=== PATIENT | male | born 2000 | race Caucasian/White ===

== ENCOUNTER 2019-03-17 15:57 | Emergency (ER) | payer OTHER ==
--- NOTE | 2019-03-17 16:04 | UC ---
Laceration HPI - HPI Summary HPI Summary: 18 yo male presents with laceration to left forearm. He tells me that just [employer] he tripped and fell, when he tried to catch himself his arm ran along the wall and a nail that was sticking out lacerated his left forearm. He bandaged the area and came to . He states he had a laceration on his right arm about a month ago and received stitches then and his tetanus is up to date. He is left handed. - History Of Current Complaint Stated Complaint: LACERATION ON LEFT ARM Time Seen by Provider: 03/17/19 16:04 Hx Obtained From: Patient Laceration Location: Arm - Allergies/Home Medications Allergies/Adverse Reactions: Allergies Allergy/AdvReac Type Severity Reaction Status Date / Time enviromental Allergy Unknown Uncoded 03/17/19 16:20 Reaction Details Home Medications: Home Medications Sertraline* [Zoloft*] 40 mg PO BEDTIME 03/17/19 [History Confirmed 03/17/19] PMH/Surg Hx/FS Hx/Imm Hx Psychological History: Anxiety - Surgical History Surgical History: None - Family History Known Family History: Positive: None - Social History Occupation: Student Lives: With Family Alcohol Use: None Substance Use Type: None Smoking Status (MU): Never Smoked Tobacco Review of Systems All Other Systems Reviewed And Are Negative: Yes Constitutional: Positive: Negative Skin: Positive: Other - Laceration Respiratory: Positive: Negative Cardiovascular: Positive: Negative Musculoskeletal: Positive: Negative Neurological: Positive: Negative Psychological: Positive: Negative Physical Exam - Summary Physical Exam Summary: GENERAL: NAD. WDWN. No pain distress. SKIN: LEFT FOREARM: 16.0cm linear laceration partial thickness from the proximal radial forearm to the lower 2/3 ulnar aspect of forearm (diagonal lac) . Dried blood. Clean wound. Numerous scars and healed horizontal lacerations on b/l forearms. CHEST: No accessory muscle use. Breathing comfortably and in no distress. CV: Pulses intact. Cap refill <2seconds NEURO: Alert. PSYCH: Age appropriate behavior. Triage Information Reviewed: Yes Vital Signs: Vital Signs: Temp Pulse Resp BP Pulse Ox 98.8 F 104 16 115/68 97 03/17/19 16:16 03/17/19 16:16 03/17/19 16:16 03/17/19 16:16 03/17/19 16:16 Vital Signs Reviewed: Yes Laceration Repair - Laceration Repair 1 Description: Linear Laceration Size After Repair: Length (cm) - 16.0 Modified For Repair: No Anesthesia Used: 1.0% Lido Irrigation With Pressure Irrigation Device: Yes Closure Material: Sutures - #13 Closure Method: Single Layer Suture Of: Skin Suture Type: Prolene - 5-0 Laceration Course/Dx - Course/Dx Course Of Treatment: Laceration left forearm. He has past scars and healed lacerations on his b/l forearms that appear consistent with self inflicted cutting behavior. When asked, he denies that his left forearm laceration today is self inflicted. He denies this to myself and the nurse. He denies SI/HI or wanting to hurt himself or others. He states that he feels safe at home. 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 The procedure was explained to the pt and all questions were answered. A time out was performed, witnessed, and signed. The area was irrigated with 200mL sterile saline. 4mL of 2% lidocaine without epi was administered and good anesthetization was achieved. In the usual sterile fashion, THIRTEEN 5-0 prolene interrupted sutures were placed to the mid and distal part of the laceration. The proximal part of the laceration was amenable to glue, therefore dermabond was applied and the wound was brought into good approximation. The wound was bandaged with telfa. Pt tolerated procedure well. He agrees to return for suture removal in 7-10 days. - Diagnosis Provider Diagnosis: Laceration of left forearm Discharge - Sign-Out/Discharge Documenting (check all that apply): Patient Departure All imaging exams completed and their final reports reviewed: No Studies - Discharge Plan Condition: Stable Disposition: HOME Patient Education Materials: Care For Your Stitches (ED), Laceration (ED) Referrals: No Primary Care Phys,NOPCP [Primary Care Provider] - Additional Instructions: If you develop a fever, shortness of breath, chest pain, new or worsening symptoms - please call your PCP or go to the ED immediately. 1) Please keep the area bandaged, clean, dry, and intact for the next 24- 48hours and then keep covered daily with a bandaged until sutures are removed. 2) If you develop a fever, colored or thick discharge, increased pain or swelling - please call your PCP or return for a wound check. 3) Please return in 7-10 days to have your THIRTEEN sutures removed. - Billing Disposition and Condition Condition: STABLE Disposition: Home - Attestation Statements Provider Attestation: I was available for consult. This patient was seen by the [facility]. The patient was not presented to, seen by, or examined by me. -[place]ka
[2019-03-17 16:20] VITALS: BP 115/68
[2019-03-17] MEDS ORDERED: Lidocaine 1% MPF* 2 ML VIAL INJ ONE (16:33)
== END 2019-03-17 17:21 | disposition home or self-care (01) ==
LOC: UCCORT 15:57
DX: S51.812A Laceration without foreign body of left forearm, initial encounter (principal); W01.118A Fall on same level from slipping, tripping and stumbling with subsequent striking against other sharp object, initial encounter; Y92.9 Unspecified place or not applicable; F41.9 Anxiety disorder, unspecified
CPT/HCPCS: 12005; 99211; G0463

== ENCOUNTER 2019-03-25 17:40 | Emergency (ER) | payer OTHER ==
[2019-03-25 17:54] VITALS: BP 109/62
--- NOTE | 2019-03-25 18:06 | UC ---
Skin Complaint HPI - HPI Summary HPI Summary: 18-year-old male comes in for suture removal from a left forearm laceration that was repaired on March 17, 2019. Had a 16 cm laceration and received 13 stitches plus skin adhesive. Patient tells me that 5 of the 13 stitches have fallen out. Denies any drainage from the area. No new bleeding. No fevers or chills. - History of Current Complaint Chief Complaint: UCLaceration Time Seen by Provider: 03/25/19 17:54 Stated Complaint: STITCHES REMOVAL - DONE HERE Pain Intensity: 0 - Allergy/Home Medications Allergies/Adverse Reactions: Allergies Allergy/AdvReac Type Severity Reaction Status Date / Time enviromental Allergy Unknown Uncoded 03/25/19 17:54 Reaction Details PMH/Surg Hx/FS Hx/Imm Hx Previously Healthy: Yes - Surgical History Surgical History: None - Family History Known Family History: Positive: None - Social History Alcohol Use: None Substance Use Type: None Substance Use Comment - Amount & Last Used: Shirin Smoking Status (MU): Never Smoked Tobacco Review of Systems All Other Systems Reviewed And Are Negative: Yes Constitutional: Positive: Negative Skin: Positive: Other - SEE HPI Eyes: Positive: Negative ENT: Positive: Negative Respiratory: Positive: Negative Cardiovascular: Positive: Negative Gastrointestinal: Positive: Negative Motor: Positive: Negative Neurovascular: Positive: Negative Musculoskeletal: Positive: Negative Neurological: Positive: Negative Psychological: Positive: Negative Is Patient Immunocompromised?: No Physical Exam Triage Information Reviewed: Yes Appearance: Well-Appearing, No Pain Distress, Well-Nourished Vital Signs: Initial Vital Signs Temp 98 F 03/25/19 17:48 Pulse 87 03/25/19 17:48 Resp 15 03/25/19 17:48 BP 109/62 03/25/19 17:48 Pulse Ox 98 03/25/19 17:48 Vital Signs Reviewed: Yes Eye Exam: Normal Eyes: Positive: Conjunctiva Clear Neck: Positive: Supple Respiratory: Positive: No respiratory distress Musculoskeletal Exam: Normal Musculoskeletal: Positive: Strength Intact, ROM Intact Neurological: Positive: Alert Psychological: Positive: Age Appropriate Behavior Skin: Positive: Other - On the dorsum of the left forearm there is a healing 16 cm laceration. There are 8 remaining sutures. There is minimal erythema at the borders of the laceration and around the bases of the sutures. No drainage no streaking. I removed the remaining 8 sutures. Course/Dx - Diagnoses Provider Diagnosis: Encounter for removal of sutures Discharge - Sign-Out/Discharge Documenting (check all that apply): Patient Departure All imaging exams completed and their final reports reviewed: No Studies - Discharge Plan Condition: Stable Disposition: HOME Patient Education Materials: Stitches Removal (ED) Referrals: [facility] [Outside] Additional Instructions: FOLLOW UP WITH YOUR DOCTOR IF NOT COMPLETELY IMPROVED. GET REEVALUATED SOONER IF WORSE; SIGNS OF INFECTION OR ANY QUESTIONS OR CONCERNS. - Billing Disposition and Condition Condition: STABLE Disposition: Home
== END 2019-03-25 18:10 | disposition home or self-care (01) ==
LOC: UCCORT 17:40
DX: Z48.02 Encounter for removal of sutures (principal)

== ENCOUNTER 2019-04-09 18:23 | Emergency (ER) | payer OTHER ==
[2019-04-09 19:15] VITALS: BP 110/70
[2019-04-09] MEDS ORDERED: Lidocaine 1% MPF ** 5 ML VIAL INJ ONE (19:48)
--- NOTE | 2019-04-09 19:48 | UC ---
Skin Complaint HPI - HPI Summary HPI Summary: Patient is a 18-year-old male here with a left axillary abscess. Patient's had erythema, pain, swelling to his left axilla for the past 2 days. Patient's had no fever, chills. Patient's never had this before. Patient does have a history of IV drug use with last use 2 months ago and has never injected drugs there. Medications reviewed - History of Current Complaint Chief Complaint: UCSkin Time Seen by Provider: 04/09/19 19:42 Stated Complaint: LT ARM SKIN CONCERN Onset/Duration: Gradual Onset Skin Exposure Onset/Duration: Days Ago Pain Intensity: 0 - Allergy/Home Medications Allergies/Adverse Reactions: Allergies Allergy/AdvReac Type Severity Reaction Status Date / Time enviromental Allergy Unknown Uncoded 04/09/19 19:15 Reaction Details Home Medications: Home Medications Citalopram TAB* [Celexa TAB*] 1 tab PO BEDTIME 04/09/19 [History Confirmed 04/09] PMH/Surg Hx/FS Hx/Imm Hx Previously Healthy: Yes - Surgical History Surgical History: None - Family History Known Family History: Positive: None, Non-Contributory - Social History Alcohol Use: Occasionally Substance Use Type: Marijuana Substance Use Comment - Amount & Last Used: occasionally Smoking Status (MU): Heavy Every Day Tobacco Smoker Amount Used/How Often: 1/2ppd Household Exposure Type: Cigarettes Review of Systems All Other Systems Reviewed And Are Negative: Yes Constitutional: Negative: Fever, Chills Skin: Positive: Rash Physical Exam - Summary Physical Exam Summary: Vital Signs Reviewed: Yes A+Ox3, no distress Eyes: Conjunctiva Clear ENT: Hearing grossly normal neck: supple Respiratory: Positive: No respiratory distress, No accessory muscle use Cardiovascular: skin color reflect adequate perfusion Musculoskeletal Exam: BROWNING x 4 without difficulty Neurological: Positive: Alert, ambulatory without difficulty Skin: To send me by 2 cm area of erythema, induration, fluctuance on the left proximal bicep. No surrounding erythema Triage Information Reviewed: Yes Vital Signs: Initial Vital Signs Temp 97.9 F 04/09/19 19:11 Pulse 76 04/09/19 19:11 Resp 16 04/09/19 19:11 BP 110/70 04/09/19 19:11 Pulse Ox 100 04/09/19 19:11 Procedures - Incision and Drainage Left Site: left axilla Anesthesia: Local Instrument(s): Scalpel Packing: Other - patient had his skin cleaned in a sterile fashion. 4 mL of 1% lidocaine was injected into the abscess cavity. A 1cm incision was performed with purulent drainage. Abscess cavity was small so no packing was placed Course/Dx - Course Course Of Treatment: Patient is here with an abscess in the left axilla. The patient has no surrounding cellulitis. Patient had successful incision and drainage of his abscess. - Differential Diagnoses - Skin Complaint Differential Diagnoses: Abscess, Cellulitis, Drug Rash, MRSA, Urticaria - Diagnoses Provider Diagnosis: Abscess of left axilla Discharge - Sign-Out/Discharge Documenting (check all that apply): Patient Departure All imaging exams completed and their final reports reviewed: No Studies - Discharge Plan Condition: Improved Disposition: HOME Patient Education Materials: Abscess (ED) Referrals: Justin Dumont MD [Primary Care Provider] - Additional Instructions: Please change her dressing on your wound at least once a day Please keep your wound clean and dry Please return if you have fever, worsening redness, a large volume of pus draining from your wound - Billing Disposition and Condition Condition: IMPROVED Disposition: Home
== END 2019-04-09 20:15 | disposition home or self-care (01) ==
LOC: UCCORT 18:23
DX: L02.412 Cutaneous abscess of left axilla (principal); F17.210 Nicotine dependence, cigarettes, uncomplicated
CPT/HCPCS: 10060; 99211; G0463